=== PATIENT | female | born 1990 ===

== ENCOUNTER 2022-05-13 20:06 | Emergency (ER) | payer OTHER ==
[~2022-05-13] VITALS: Ht 162.6 cm; Wt 100.7 kg
[~2022-05-13 20:06] MED LIST: Bactrim Ds Tab1 EACH PO; NITR100CA PO; Pyridium100 MG PO
[2022-05-13 21:19] LABS: Source, Urine Clean Catch
[2022-05-13 21:24] LABS: Appearance, Urine Clear (Clear); Bilirubin, Urine Neg (Neg); Blood, Urine 1+ (Neg); Color, Urine Yellow (P-Yellow); Glucose Qualitative, Urine Neg (Neg); Ketones, Urine Neg (Neg); Leukocyte Esterase, Urine 1+ (Neg); Nitrite, Urine Neg (Neg); Protein, Urine 1+ (Neg); Urobilinogen, Urine NORM (Normal)
[2022-05-13 21:35] LABS: Bacteria Mod /hpf; Red Blood Cells, Urine 0-2 /hpf (0-2); Squamous Epithelial Cells Mod /hpf (Few)
[2022-05-13] MEDS ORDERED: Veetids 500500 MG PO (21:57)
== END 2022-05-13 22:21 | disposition home or self-care (01) ==
LOC: ER 20:06
PROVIDERS: Physician Assistant
DX: J02.8 Acute pharyngitis due to other specified organisms (principal); Z79.899 Other long term (current) drug therapy
CPT/HCPCS: 81001; 81025; 87086; 87430; 99282; A9270

== ENCOUNTER 2022-09-14 13:50 | Emergency (ER) | payer OTHER ==
[~2022-09-14] VITALS: Ht 162.6 cm; Wt 108.9 kg
[~2022-09-14 13:50] MED LIST changes: +CEPH500 PO; +Veetids 500500 MG PO
== END 2022-09-14 15:41 | disposition home or self-care (01) ==
LOC: ER 13:50
DX: R29.898 Other symptoms and signs involving the musculoskeletal system (principal); M54.2 Cervicalgia; Z79.899 Other long term (current) drug therapy
CPT/HCPCS: 99282